=== PATIENT | female | born 1930 | race African-American/Black ===

== ENCOUNTER 2019-11-21 20:24 | Observation (INO) ==
[2019-11-21] MEDS ORDERED: ONDANSETRON 4 MG/2 ML VIAL IV STA (20:53)
[2019-11-21] MEDS ORDERED: SODIUM CHLORIDE 0.9% 500 ML IV STA ×2 (20:53→21:59)
[2019-11-21] MEDS ORDERED: MECLIZINE 25 MG TABLET PO STA (20:53)
[2019-11-21 21:10] LABS: Basophils % 0.8 % (0.0-0.8); Eosinophils # 0.1 10*3/uL (0.0-0.87); Eosinophils % 2.7 % (0.00-10.9); Hematocrit 33.3 VOL% (35.7-47.0); Hemoglobin 10.9 GM/DL (12.0-16.0); Immature Granulocytes % 0.2 %; Immature Granulocytes Absolute 0.01 #; Lymphocytes # 1.6 10*3/uL (1.4-4.0); Lymphocytes % 30.7 % (21.3-54.2); Mean Corpuscular HGB Conc 32.7 GM/DL (32-36); Mean Corpuscular Volume 100.3 FL (87-102); Mean Platelet Volume 10.4 FL (9.6-12.0); Neutrophils % 55.6 % (38.7-73.9); Platelet Count 194 T/CUMM (130-400); Red Blood Count 3.32 MC/CUMM (3.8-5.5); Red Cell Distribution Width 12.4 % (9.3-17.3); White Blood Count 5.2 T/CUMM (4-12)
[2019-11-21 21:39] LABS: Alanine Aminotransferase 18 U/L (13-56); Albumin 2.6 G/DL (3.4-5.0); Alkaline Phosphatase 101 U/L (45-117); Aspartate Amino Transferase 21 U/L (0-37); Bilirubin,Total < 0.39 MG/DL (0.2-1.0); Blood Urea Nitrogen 52 MG/DL (7-18); Calcium 8.7 MG/DL (8.5-10.1); Estimated Glom Filtration Rate 30 ML/MIN; Glucose 123 MG/DL (74-106); Total Protein 6.3 G/DL (6.4-8.3)
[2019-11-21 23:06] LABS: Bacteria,Urine Occasional /HPF (Few); Bilirubin,Urine Negative (Negative); Blood, Urine Negative (Negative); Glucose,Urine (UA) Negative (Negative); Ketones,Urine Negative (Negative); Nitrite,Urine Negative (Negative); Protein,Urine Negative; RBC,Urine 2 /HPF (0-4); Squamous Epithelial Cell,Urine Occasional /HPF (0-10); Urine Appearance CLEAR (Clear); Urine Color Yellow (Yellow); Urine Specific Gravity 1.011 (1.001-1.035); Urine Urobilinogen < 2.0 EU/DL (0.2-1.0); WBC,Urine 9 /HPF (0-6)
[2019-11-21] MEDS ORDERED: PIPERACILLIN/TAZOBACTAM 3,375 MG in SODIUM CHLORIDE 0.9% 100 ML IV STA (23:13)
[2019-11-21] MEDS ORDERED: AZITHROMYCIN INJ 500 MG in SODIUM CHLORIDE 0.9% 250 ML IV SCH (23:45)
[2019-11-22] MEDS ORDERED: hydrALAZINE 20 MG/1 ML VIAL IV PRN (00:01)
[2019-11-22] MEDS ORDERED: MORPHINE 4 MG/1 ML VIAL IV PRN (00:01)
[2019-11-22] MEDS ORDERED: GLUCAGON 1 MG VIAL IM PRN (00:01)
[2019-11-22] MEDS ORDERED: ALUMINUM/MAGNES/SIMETH MAX STR 30 ML UDCUP PO PRN (00:01)
[2019-11-22] MEDS ORDERED: DOCUSATE SODIUM 100 MG CAPSULE PO PRN (00:01)
[2019-11-22] MEDS ORDERED: LACTULOSE 20 GM/30 ML UDCUP PO PRN (00:01)
[2019-11-22] MEDS ORDERED: guaiFENesin/DM ER 600-30 MG TABLET PO PRN (00:01)
[2019-11-22] MEDS ORDERED: NICOTINE 21 MG/24 HR PATCH TRANSDERM PRN (00:01)
[2019-11-22] MEDS ORDERED: CALCIUM CARBONATE CHEW 500 MG TABLET PO PRN (00:01)
[2019-11-22] MEDS ORDERED: diphenhydrAMINE CAP 25 MG CAPSULE PO PRN (00:01)
[2019-11-22] MEDS ORDERED: SIMETHICONE CHEW 125 MG TABLET PO PRN (00:01)
[2019-11-22] MEDS ORDERED: ZALEPLON 5 MG CAPSULE PO PRN (00:01)
[2019-11-22] MEDS ORDERED: ACETAMINOPHEN 325 MG TABLET PO PRN (00:01)
[2019-11-22] MEDS ORDERED: DEXTROSE 50% 25 GM/50 ML VIAL IV PRN (00:01)
[2019-11-22] MEDS ORDERED: ONDANSETRON 4 MG/2 ML VIAL IV PRN (00:01)
[2019-11-22] MEDS ORDERED: INFLUENZA VIRUS VACCINE 0.5 ML SYRINGE IM ONE (03:27)
[2019-11-22] MEDS: cefTRIAXone 1,000 MG in SYRINGE 1 EACH IV SCH (07:25)
[2019-11-22 07:32] LABS: Basophils % 0.7 % (0.0-0.8); Eosinophils # 0.1 10*3/uL (0.0-0.87); Eosinophils % 3.4 % (0.00-10.9); Hemoglobin 10.8 GM/DL (12.0-16.0); Immature Granulocytes % 0.2 %; Immature Granulocytes Absolute 0.01 #; Lymphocytes # 1.1 10*3/uL (1.4-4.0); Lymphocytes % 27.4 % (21.3-54.2); Mean Corpuscular HGB Conc 32.7 GM/DL (32-36); Mean Corpuscular Volume 99.4 FL (87-102); Mean Platelet Volume 10.5 FL (9.6-12.0); Monocytes % 11.7 % (1.7-12.7); Neutrophils % 56.6 % (38.7-73.9); Platelet Count 190 T/CUMM (130-400); Red Blood Count 3.32 MC/CUMM (3.8-5.5); Red Cell Distribution Width 12.5 % (9.3-17.3); White Blood Count 4.1 T/CUMM (4-12)
[2019-11-22 07:50] LABS: Calcium 8.5 MG/DL (8.5-10.1); Osmolality,Calculated 295.8 MOS/KG (273-304)
[2019-11-22 08:11] LABS: Folate > 24.0 NG/ML (5.4-24.0); Vitamin B12 839 PG/ML (211-911)
[2019-11-22] MEDS: PANTOPRAZOLE 40 MG TABLET PO SCH (08:21)
[2019-11-22 08:32] LABS: Sedimentation Rate-Westergren 60 MM/HR (0-30)
[2019-11-22] MEDS ORDERED: AZITHROMYCIN 250 MG TABLET PO SCH (09:00)
[2019-11-22] MEDS ORDERED: SODIUM CHLORIDE 0.9% 1,000 ML IV SCH (13:00)
[2019-11-22 13:49] LABS: Troponin I < 0.015 NG/ML (0.00-0.045)
[2019-11-22] MEDS: ASPIRIN EC 81 MG TABLET PO SCH (14:52)
[2019-11-22] MEDS: amLODIPine 10 MG TABLET PO SCH (14:52)
[2019-11-22] MEDS: PREGABALIN 50 MG CAPSULE PO SCH (20:40)
[2019-11-23 05:58] LABS: Eosinophils # 0.2 10*3/uL (0.0-0.87); Eosinophils % 3.9 % (0.00-10.9); Hematocrit 33.6 VOL% (35.7-47.0); Hemoglobin 10.9 GM/DL (12.0-16.0); Immature Granulocytes % 0.5 %; Immature Granulocytes Absolute 0.02 #; Lymphocytes # 1.4 10*3/uL (1.4-4.0); Lymphocytes % 37.2 % (21.3-54.2); Mean Corpuscular HGB Conc 32.4 GM/DL (32-36); Mean Corpuscular Volume 100.6 FL (87-102); Mean Platelet Volume 10.6 FL (9.6-12.0); Monocytes % 12.2 % (1.7-12.7); Neutrophils % 45.2 % (38.7-73.9); Platelet Count 203 T/CUMM (130-400); Red Blood Count 3.34 MC/CUMM (3.8-5.5); Red Cell Distribution Width 12.4 % (9.3-17.3); White Blood Count 3.8 T/CUMM (4-12)
[2019-11-23 06:21] LABS: Calcium 8.4 MG/DL (8.5-10.1); Osmolality,Calculated 293.3 MOS/KG (273-304)
[2019-11-23 06:30] LABS: Risk Ratio 1.87; Troponin I < 0.015 NG/ML (0.00-0.045); VLDL CHOLESTEROL 7.6 MG/DL
[2019-11-23] MEDS: cefTRIAXone 1,000 MG in SYRINGE 1 EACH IV SCH (06:45)
[2019-11-23] MEDS: PREGABALIN 50 MG CAPSULE PO SCH (08:42)
[2019-11-23] MEDS: ASPIRIN EC 81 MG TABLET PO SCH (08:42)
[2019-11-23] MEDS: PANTOPRAZOLE 40 MG TABLET PO SCH (08:42)
[2019-11-23] MEDS: amLODIPine 10 MG TABLET PO SCH (08:42)
[2019-11-23 11:45] VITALS: BP 135/65
[2019-11-25] MEDS ORDERED: NON-FORMULARY MEDICATION (Alendronate 70 MG tablet) PO SCH (09:00)
== END 2019-11-23 13:26 | disposition home health service (06) ==
LOC: N.EDINP 20:24 → N.ED 20:24 → SUATTDRO 11-22 00:01 → N.EDINP 11-22 02:38 → N.4E 11-22 06:13
PROVIDERS: ADMIT Internal Medicine; ATTEND Internal Medicine